=== PATIENT | female | born 1990 | race African-American/Black ===

== ENCOUNTER 2021-03-14 12:53 | Inpatient (IN) | payer MEDICARE, OTHER ==
[~2021-03-14] VITALS: Ht 157.5 cm; Wt 118.8 kg
[2021-03-14] MEDS ORDERED: METHYLPREDNISOLONE SOD SUCC 125 MG/2 ML VIAL IV ONE (14:45)
[2021-03-14 19:31] LABS: BASOPHILS % 0.5 % (0.0-2.0); EOSINOPHILS % 1.3 % (0.0-5.0); HEMATOCRIT. 36.9 % (36.0-48.0); HEMOGLOBIN. 12.1 g/dL (12.0-16.0); LYMPHOCYTES % 23.6 % (20.0-50.0); MEAN CORPUSCULAR HEMOGLOBIN 27.5 pg (28.0-32.0); MEAN CORPUSCULAR VOLUME 83.9 fL (81.0-99.0); MEAN PLATELET VOLUME 8.6 fl (7.4-10.4); MONOCYTES % 7.2 % (2.0-8.0); NEUTROPHILS % 67.4 % (40.0-76.0); PLATELET 355 x1000/uL (130-400); RED CELL DISTRIBUTION WIDTH 16.9 % (11.6-14.6)
[2021-03-14 19:36] LABS: CHLORIDE 107 mEq/L (98-107)
[2021-03-14 19:43] LABS: HCG SCREEN NEGATIVE
[2021-03-14] MEDS ORDERED: ACETAMINOPHEN 325MG TABLET PO PRN (22:15)
[2021-03-14] MEDS ORDERED: ONDANSETRON HCL 4MG/2ML INJ IV PRN (22:15)
[2021-03-14] MEDS ORDERED: LORAZEPAM 2MG/ML CPJ IV PRN (22:15)
[2021-03-14] MEDS ORDERED: CLONIDINE 0.1MG TABLET PO PRN (22:15)
[2021-03-14 22:49] LABS: CLARITY URINE CLOUDY (CLEAR); COLOR URINE YELLOW (YELLOW); KETONES URINE NEGATIVE (NEGATIVE); LEUKOCYTE ESTERASE URINE 1+ (NEGATIVE); NITRITE URINE NEGATIVE (NEGATIVE); OCCULT BLOOD URINE NEGATIVE (NEGATIVE); PROTEIN URINE NEGATIVE (NEGATIVE); SPECIFIC GRAVITY URINE 1.015 (1.005-1.030); UROBILINOGEN URINE 0.2 E.U./dL (0.2-1.0)
[2021-03-14 23:04] LABS: METHADONE URINE SCREEN NEGATIVE (NEGATIVE)
[2021-03-14 23:05] LABS: *AMPHETAMINES SCREEN URINE NEGATIVE (NEGATIVE); *BARBITURATES SCREEN URINE NEGATIVE (NEGATIVE); *BENZODIAZEPINES SCREEN URINE NEGATIVE (NEGATIVE); *COCAINE SCREEN URINE NEGATIVE (NEGATIVE); CANNABINOID URINE SCREEN NEGATIVE (NEGATIVE); OPIATES URINE SCREEN NEGATIVE (NEGATIVE); PHENCYCLIDINE URINE SCREEN NEGATIVE (NEGATIVE)
[2021-03-14] MEDS: THIAMINE HCL 100MG TABLET PO SCH (23:29)
[2021-03-15] MEDS: MORPHINE SULFATE 2 MG/ML CPJ (NOT FOR IM USE) IV PRN ×3 (02:15→22:25)
[2021-03-15] MEDS: ENOXAPARIN 30MG/0.3ML SYR SUBCUT SCH ×3 (02:16→22:17)
[2021-03-15] MEDS ORDERED: NALOXONE HCL 0.4MG/ML VIAL IV PRN (04:15)
[2021-03-15 06:46] LABS: BASOPHILS % 0.2 % (0.0-2.0); EOSINOPHILS % 0.1 % (0.0-5.0); HEMATOCRIT. 34.7 % (36.0-48.0); HEMOGLOBIN. 11.3 g/dL (12.0-16.0); LYMPHOCYTES % 9.6 % (20.0-50.0); MEAN CORPUSCULAR HEMOGLOBIN 27.7 pg (28.0-32.0); MEAN PLATELET VOLUME 8.5 fl (7.4-10.4); NEUTROPHILS % 89.1 % (40.0-76.0); PLATELET 375 x1000/uL (130-400); RED BLOOD CELL COUNT 4.08 mill/uL (4.2-5.4); RED CELL DISTRIBUTION WIDTH 16.5 % (11.6-14.6)
[2021-03-15 06:51] LABS: CHLORIDE 107 mEq/L (98-107)
[2021-03-15 06:58] LABS: PHOSPHORUS 2.3 mg/dL (2.5-4.9)
[2021-03-15] MEDS: THIAMINE HCL 100MG TABLET PO SCH (08:45)
[2021-03-15] MEDS ORDERED: ACETAMINOPHEN 325MG TABLET PO PRN (09:30)
[2021-03-15] MEDS ORDERED: DEXTROSE 50% WATER 50ML SYRINGE IV PRN ×2 (09:30)
[2021-03-15] MEDS ORDERED: DOCUSATE SODIUM 100MG CAPSULE PO PRN (09:30)
[2021-03-15] MEDS ORDERED: IPRATROPIUM/ALBUTEROL 0.5-3(2.5)MG/3ML NEB HHN PRN (09:30)
[2021-03-15] MEDS ORDERED: MAGNESIUM/ALUMINUM HYDROXIDE/SIMETHICONE 30ML UDC PO PRN (09:30)
[2021-03-15] MEDS: METHYLPREDNISOLONE SOD SUCC 125 MG/2 ML VIAL IV SCH ×2 (09:55→18:16)
[2021-03-15] MEDS ORDERED: METHYLPREDNISOLONE SOD SUCC 125 MG/2 ML VIAL IV SCH (10:00)
[2021-03-15 11:46] VITALS: BP 131/78
[2021-03-15 12:00] VITALS: BP 131/85
[2021-03-15] MEDS: BLOOD SUGAR DIAGNOSTIC STRIP TEST SCH ×3 (12:20→21:00)
[2021-03-15] MEDS: INSULIN LISPRO 100 UNITS/ML SUBCUT SCH ×3 (12:50→21:00)
[2021-03-15] MEDS: DEXT 5% IV SCH (12:57)
[2021-03-15] MEDS: METHYLPREDNISOLONE SOD IV SCH (12:57)
[2021-03-15] MEDS: WATER IV SCH (12:57)
[2021-03-15] MEDS: MULTIVITAMINS,THER W-MINERALS TABLET PO SCH (15:15)
[2021-03-15] MEDS ORDERED: TRAZ-251 MT (15:59)
[2021-03-15 16:00] VITALS: BP 112/65
[2021-03-15 21:13] VITALS: BP 162/109
[2021-03-16 00:28] VITALS: BP 113/76
[2021-03-16] MEDS: METHYLPREDNISOLONE SOD SUCC 125 MG/2 ML VIAL IV SCH ×5 (02:39→23:26)
[2021-03-16 04:00] VITALS: BP 132/78
[2021-03-16] MEDS: BLOOD SUGAR DIAGNOSTIC STRIP TEST SCH ×4 (07:20→20:45)
[2021-03-16 07:21] LABS: BASOPHILS % 0.1 % (0.0-2.0); HEMATOCRIT. 34.4 % (36.0-48.0); HEMOGLOBIN. 10.9 g/dL (12.0-16.0); LYMPHOCYTES % 8.8 % (20.0-50.0); MEAN CORPUSCULAR HEMOGLOBIN 27.3 pg (28.0-32.0); MEAN CORPUSCULAR VOLUME 85.9 fL (81.0-99.0); MEAN PLATELET VOLUME 8.8 fl (7.4-10.4); NEUTROPHILS % 86.1 % (40.0-76.0); PLATELET 405 x1000/uL (130-400); RED CELL DISTRIBUTION WIDTH 17.1 % (11.6-14.6)
[2021-03-16 08:00] VITALS: BP 134/85
[2021-03-16 08:18] LABS: CHLORIDE 110 mEq/L (98-107)
[2021-03-16 08:24] LABS: PHOSPHORUS 2.6 mg/dL (2.5-4.9)
[2021-03-16] MEDS: THIAMINE HCL 100MG TABLET PO SCH (09:22)
[2021-03-16] MEDS: MULTIVITAMINS,THER W-MINERALS TABLET PO SCH (09:22)
[2021-03-16] MEDS: ENOXAPARIN 30MG/0.3ML SYR SUBCUT SCH ×2 (09:23→21:57)
[2021-03-16 09:27] LABS: LDL CHOLESTEROL 173 mg/dL (5-100)
[2021-03-16] MEDS: MORPHINE SULFATE 2 MG/ML CPJ (NOT FOR IM USE) IV PRN ×2 (09:28→11:23)
[2021-03-16] MEDS: INSULIN LISPRO 100 UNITS/ML SUBCUT SCH ×5 (09:28→23:37)
[2021-03-16 09:29] LABS: HDL CHOLESTEROL 48 mg/dL (40-59)
[2021-03-16 09:30] LABS: T4 FREE 0.74 ng/dL (0.76-1.46)
[2021-03-16 12:00] VITALS: BP 136/87
[2021-03-16] MEDS: WATER IV SCH (12:40)
[2021-03-16] MEDS: METHYLPREDNISOLONE SOD IV SCH (12:40)
[2021-03-16] MEDS: HYDROCODONE/ACETAMINOPHEN 5/325MG TABLET PO PRN (12:40)
[2021-03-16] MEDS: DEXT 5% IV SCH (12:40)
[2021-03-16 20:00] VITALS: BP 120/75
[2021-03-17] VITALS: BP 134/96
[2021-03-17] MEDS: METHYLPREDNISOLONE SOD SUCC 125 MG/2 ML VIAL IV SCH (06:24)
[2021-03-17] MEDS: BLOOD SUGAR DIAGNOSTIC STRIP TEST SCH ×4 (06:32→20:17)
[2021-03-17] MEDS: INSULIN LISPRO 100 UNITS/ML SUBCUT SCH ×4 (07:14→20:20)
[2021-03-17 08:12] LABS: CHLORIDE 111 mEq/L (98-107)
[2021-03-17 08:15] LABS: HEMATOCRIT. 30.5 % (36.0-48.0); HEMOGLOBIN. 10.2 g/dL (12.0-16.0); MEAN CORPUSCULAR HEMOGLOBIN 28.4 pg (28.0-32.0); MEAN CORPUSCULAR VOLUME 84.7 fL (81.0-99.0); MEAN PLATELET VOLUME 8.9 fl (7.4-10.4); PLATELET 380 x1000/uL (130-400)
[2021-03-17] MEDS: POLYETHYLENE GLYCOL 3350 (17GM) 1 DOSE PACK PO SCH (09:14)
[2021-03-17] MEDS: MULTIVITAMINS,THER W-MINERALS TABLET PO SCH (09:14)
[2021-03-17] MEDS: THIAMINE HCL 100MG TABLET PO SCH (09:14)
[2021-03-17] MEDS: ENOXAPARIN 30MG/0.3ML SYR SUBCUT SCH ×2 (09:15→20:18)
[2021-03-17] MEDS: WATER IV SCH (11:54)
[2021-03-17] MEDS: METHYLPREDNISOLONE SOD IV SCH (11:54)
[2021-03-17] MEDS: DEXT 5% IV SCH (11:54)
[2021-03-17] MEDS: FAMOTIDINE 20MG TABLET PO SCH ×2 (11:55→20:19)
[2021-03-17 12:00] VITALS: BP 129/81
[2021-03-17] MEDS: HYDROCODONE/ACETAMINOPHEN 5/325MG TABLET PO PRN ×3 (12:09→20:46)
[2021-03-17 14:21] LABS: PLATELET ESTIMATE NORMAL
[2021-03-17 16:00] VITALS: BP 124/70
[2021-03-17 20:00] VITALS: BP 132/56
[2021-03-18] VITALS: BP 137/80
[2021-03-18 04:00] VITALS: BP 130/76
[2021-03-18] MEDS: HYDROCODONE/ACETAMINOPHEN 5/325MG TABLET PO PRN (04:11)
[2021-03-18] MEDS: BLOOD SUGAR DIAGNOSTIC STRIP TEST SCH ×3 (07:15→17:20)
[2021-03-18] MEDS: INSULIN LISPRO 100 UNITS/ML SUBCUT SCH ×3 (07:15→17:50)
[2021-03-18 08:00] VITALS: BP 128/68
[2021-03-18] MEDS: FAMOTIDINE 20MG TABLET PO SCH (09:00)
[2021-03-18] MEDS: MULTIVITAMINS,THER W-MINERALS TABLET PO SCH (09:19)
[2021-03-18] MEDS: POLYETHYLENE GLYCOL 3350 (17GM) 1 DOSE PACK PO SCH (09:19)
[2021-03-18] MEDS: THIAMINE HCL 100MG TABLET PO SCH (09:19)
[2021-03-18] MEDS: ENOXAPARIN 30MG/0.3ML SYR SUBCUT SCH (09:20)
[2021-03-18 12:00] VITALS: BP 130/90
[2021-03-18] MEDS: WATER IV SCH (12:35)
[2021-03-18] MEDS: DEXT 5% IV SCH (12:35)
[2021-03-18] MEDS: METHYLPREDNISOLONE SOD IV SCH (12:35)
== END 2021-03-18 20:25 | disposition left against medical advice (07) | DRG 60 ==
LOC: ER 12:53 → MICUSO 20:02 → SUPCPDRO 22:02 → 7WST 03-15 04:01 → MICUSO 03-15 07:24 → 6EST 03-15 09:39
PROVIDERS: ADMIT Internal Medicine Nephrology; ATTEND Internal Medicine Nephrology
DX: G35 Multiple sclerosis (principal); D64.9 Anemia, unspecified; D72.829 Elevated white blood cell count, unspecified; G89.29 Other chronic pain; E78.00 Pure hypercholesterolemia, unspecified; R26.9 Unspecified abnormalities of gait and mobility; Z20.822 Contact with and (suspected) exposure to COVID-19; Z53.29 Procedure and treatment not carried out because of patient's decision for other reasons; R13.10 Dysphagia, unspecified; E11.65 Type 2 diabetes mellitus with hyperglycemia; R32 Unspecified urinary incontinence; R20.2 Paresthesia of skin; R20.0 Anesthesia of skin; T38.0X5A Adverse effect of glucocorticoids and synthetic analogues, initial encounter; Y92.89 Other specified places as the place of occurrence of the external cause; Z91.14 Patient's other noncompliance with medication regimen; Z91.19 Patient's noncompliance with other medical treatment and regimen
CPT/HCPCS: 36415; 80048; 80053; 80061; 80076; 80305; 81003; 82962; 83036; 83735; 84100; 84439; 84443; 84703; 85025; 87426; 92610; 93005; 93970; 97162; 99285; J1650; J1815; J2060; J2270; J2930; J7060

== ENCOUNTER 2021-03-21 11:32 | Inpatient (IN) | payer MEDICARE, OTHER ==
[~2021-03-21] VITALS: Ht 157.5 cm; Wt 117.1 kg
[2021-03-21] MEDS: METHYLPREDNISOLONE SOD SUCC 125 MG/2 ML VIAL IV SCH
[~2021-03-21 11:32] MED LIST: TRAZ-251 MT
[2021-03-21] MEDS ORDERED: SODIUM CHLORIDE 0.9% 1,000 ML IV ONE (12:15)
[2021-03-21 12:52] LABS: BASOPHILS % 0.2 % (0.0-2.0); EOSINOPHILS % 1.2 % (0.0-5.0); HEMATOCRIT. 33.7 % (36.0-48.0); LYMPHOCYTES % 18.9 % (20.0-50.0); MEAN CORPUSCULAR VOLUME 85.4 fL (81.0-99.0); MEAN PLATELET VOLUME 8.3 fl (7.4-10.4); MONOCYTES % 7.5 % (2.0-8.0); NEUTROPHILS % 72.2 % (40.0-76.0); PLATELET 302 x1000/uL (130-400); RED BLOOD CELL COUNT 3.94 mill/uL (4.2-5.4); RED CELL DISTRIBUTION WIDTH 17.2 % (11.6-14.6)
[2021-03-21 13:02] LABS: CHLORIDE 111 mEq/L (98-107)
[2021-03-21 13:06] LABS: ETHANOL BLOOD < 10 mg/dL
[2021-03-21 13:10] LABS: CREATINE KINASE 32 IU/L (26-192)
[2021-03-21] MEDS ORDERED: CEFTRIAXONE 1 G PREMIX 50 ML IV ONE (14:30)
[2021-03-21] MEDS ORDERED: AZITHROMYCIN 500 MG TABLET PO ONE (14:30)
[2021-03-21 20:40] LABS: CLARITY URINE CLOUDY (CLEAR); COLOR URINE YELLOW (YELLOW); KETONES URINE NEGATIVE (NEGATIVE); LEUKOCYTE ESTERASE URINE 1+ (NEGATIVE); NITRITE URINE NEGATIVE (NEGATIVE); OCCULT BLOOD URINE 2+ (NEGATIVE); PROTEIN URINE NEGATIVE (NEGATIVE); SPECIFIC GRAVITY URINE 1.016 (1.005-1.030)
[2021-03-21] MEDS ORDERED: HYDROCODONE/ACETAMINOPHEN 5/325MG TABLET PO ONE (21:15)
[2021-03-21 21:16] LABS: *AMPHETAMINES SCREEN URINE NEGATIVE (NEGATIVE); *BARBITURATES SCREEN URINE NEGATIVE (NEGATIVE); *BENZODIAZEPINES SCREEN URINE NEGATIVE (NEGATIVE); *COCAINE SCREEN URINE NEGATIVE (NEGATIVE); METHADONE URINE SCREEN NEGATIVE (NEGATIVE)
[2021-03-21 21:17] LABS: CANNABINOID URINE SCREEN NEGATIVE (NEGATIVE); OPIATES URINE SCREEN NEGATIVE (NEGATIVE); PHENCYCLIDINE URINE SCREEN NEGATIVE (NEGATIVE)
[2021-03-21] MEDS ORDERED: MAGNESIUM/ALUMINUM HYDROXIDE/SIMETHICONE 30ML UDC PO PRN (23:00)
[2021-03-21] MEDS ORDERED: ACETAMINOPHEN 325MG TABLET PO PRN ×2 (23:00)
[2021-03-21] MEDS ORDERED: ONDANSETRON HCL 4MG/2ML INJ IV PRN (23:00)
[2021-03-21] MEDS ORDERED: ZOLPIDEM TARTRATE 5MG TABLET PO PRN (23:00)
[2021-03-21] MEDS ORDERED: DIPHENHYDRAMINE 50MG/ML VIAL IV PRN (23:00)
[2021-03-21] MEDS ORDERED: NALOXONE HCL 0.4MG/ML VIAL IV PRN (23:45)
[2021-03-22] VITALS (7 sets, daily range): BP systolic 97–131; BP diastolic 58–90
[2021-03-22] MEDS: METHYLPREDNISOLONE SOD SUCC 125 MG/2 ML VIAL IV SCH ×3 (05:40→18:35)
[2021-03-22] MEDS: SODIUM CHLORIDE 0.9% INJ 3ML FLUSH IVF SCH ×2 (05:40→14:00)
[2021-03-22] MEDS: HYDROCODONE/ACETAMINOPHEN 5/325MG TABLET PO PRN ×3 (06:01→18:35)
[2021-03-22] MEDS ORDERED: FAMOTIDINE 20MG TABLET PO SCH (09:00)
[2021-03-22] MEDS ORDERED: MULTIVITAMINS,THER W-MINERALS TABLET PO SCH (09:00)
[2021-03-22] MEDS ORDERED: POLYETHYLENE GLYCOL 3350 (17GM) 1 DOSE PACK PO SCH (09:00)
[2021-03-22] MEDS ORDERED: THIAMINE HCL 100MG TABLET PO SCH (09:00)
== END 2021-03-22 21:50 | disposition home or self-care (01) | DRG 58 ==
LOC: ER 11:32 → MICUSO 17:56 → 6WST 22:47
PROVIDERS: ADMIT Internal Medicine; ATTEND Internal Medicine
DX: G35 Multiple sclerosis (principal); J18.9 Pneumonia, unspecified organism; Z68.42 Body mass index [BMI] 45.0-49.9, adult; Z20.822 Contact with and (suspected) exposure to COVID-19; F41.1 Generalized anxiety disorder; Z91.14 Patient's other noncompliance with medication regimen; Z91.19 Patient's noncompliance with other medical treatment and regimen; D63.8 Anemia in other chronic diseases classified elsewhere; T38.0X5A Adverse effect of glucocorticoids and synthetic analogues, initial encounter; D72.829 Elevated white blood cell count, unspecified; E78.00 Pure hypercholesterolemia, unspecified; R73.9 Hyperglycemia, unspecified; E66.01 Morbid (severe) obesity due to excess calories; I95.9 Hypotension, unspecified
CPT/HCPCS: 36415; 71045; 80053; 80305; 80320; 81003; 82140; 82550; 83605; 83880; 84443; 84484; 85025; 86850; 86900; 87426; 93005; 99285; J0696; J2930; J7030; G0480

== ENCOUNTER 2022-08-28 14:28 | Emergency (ER) | payer MEDICARE, OTHER ==
[~2022-08-28] VITALS: Ht 157.5 cm; Wt 74.0 kg
[2022-08-28 14:38] VITALS: BP 136/70
[2022-08-28] MEDS ORDERED: ACETAMINOPHEN 325MG TABLET PO STA (18:57)
[2022-08-28 19:45] LABS: CLARITY URINE SL HAZY (CLEAR); COLOR URINE YELLOW (YELLOW); KETONES URINE 1+ (NEGATIVE); LEUKOCYTE ESTERASE URINE NEGATIVE (NEGATIVE); NITRITE URINE NEGATIVE (NEGATIVE); OCCULT BLOOD URINE NEGATIVE (NEGATIVE); PROTEIN URINE TRACE (NEGATIVE); SPECIFIC GRAVITY URINE 1.025 (1.005-1.030); UROBILINOGEN URINE 0.2 E.U./dL (0.2-1.0)
[2022-08-28] MEDS ORDERED: DIAZEPAM 5 MG TABLET PO ONE (20:30)
[2022-08-28 20:34] LABS: BASOPHILS % 0.6 % (0.0-2.0); EOSINOPHILS % 1.2 % (0.0-5.0); HEMATOCRIT. 29.4 % (36.0-48.0); HEMOGLOBIN. 9.3 g/dL (12.0-16.0); LYMPHOCYTES % 26.5 % (20.0-50.0); MEAN CORPUSCULAR HEMOGLOBIN 23.7 pg (28.0-32.0); MEAN CORPUSCULAR VOLUME 75.2 fL (81.0-99.0); MEAN PLATELET VOLUME 8.7 fl (7.4-10.4); MONOCYTES % 7.4 % (2.0-8.0); NEUTROPHILS % 64.3 % (40.0-76.0); PLATELET 311 x1000/uL (130-400); RED BLOOD CELL COUNT 3.91 mill/uL (4.2-5.4); RED CELL DISTRIBUTION WIDTH 19.7 % (11.6-14.6)
[2022-08-28 20:45] LABS: CHLORIDE 114 mEq/L (98-107)
[2022-08-29] MEDS ORDERED: IBUP-2029 MT (01:08)
== END 2022-08-28 23:10 | disposition home or self-care (01) ==
LOC: ER 14:28
DX: M54.59 Other low back pain (principal); R53.1 Weakness; Z20.822 Contact with and (suspected) exposure to COVID-19; R51.9 Headache, unspecified; Z59.00 Homelessness unspecified
CPT/HCPCS: 36415; 72148; 80053; 81003; 81025; 85025; 87426; 93005; 99285; C9803

== ENCOUNTER 2022-08-29 00:29 | Emergency (ER) | payer MEDICARE, OTHER ==
[~2022-08-29] VITALS: Ht 157.5 cm; Wt 74.0 kg
[2022-08-29] MEDS ORDERED: IBUP-2029 MT (01:08)
[2022-08-29] MEDS ORDERED: IBUPROFEN 600MG TABLET PO ONE (01:15)
[2022-08-29 01:20] VITALS: BP 130/82
== END 2022-08-29 01:23 | disposition home or self-care (01) ==
LOC: ER 00:29
DX: M54.2 Cervicalgia (principal); Z59.00 Homelessness unspecified
CPT/HCPCS: 99282

== ENCOUNTER 2024-03-19 13:00 | Emergency (ER) | payer MEDICARE, OTHER ==
[~2024-03-19] VITALS: Ht 167.6 cm; Wt 86.0 kg
[~2024-03-19 13:00] MED LIST changes: +IBUP-2029 MT
[2024-03-19 13:04] VITALS: O2SAT 98
[2024-03-19 18:55] LABS: CHLORIDE 111 mEq/L (98-107); POTASSIUM 3.7 mEq/L (3.5-5.1); SODIUM 141 mEq/L (136-145)
[2024-03-19 18:56] LABS: CALCIUM 9.6 mg/dL (8.7-10.4); CARBON DIOXIDE 24 mEq/L (21-32)
[2024-03-19 19:01] LABS: BASOPHILS % 0.6 % (0.0-2.0); CREATININE 0.7 mg/dL (0.6-1.0); EOSINOPHILS % 1.6 % (0.0-5.0); GLUCOSE 106 mg/dL (70-105); HEMATOCRIT. 32.6 % (36.0-48.0); HEMOGLOBIN. 10.3 g/dL (12.0-16.0); LYMPHOCYTES % 20.9 % (20.0-50.0); MEAN CORPUSCULAR HGB CONC 31.5 g/dL (31.0-37.0); MEAN CORPUSCULAR VOLUME 85.6 fL (81.0-99.0); MONOCYTES % 8.9 % (2.0-8.0); RED BLOOD CELL COUNT 3.81 mill/uL (4.2-5.4); RED CELL DISTRIBUTION WIDTH 17.7 % (11.6-14.6); UREA NITROGEN BLOOD 13 mg/dL (9-23); WHITE BLOOD COUNT 8.2 x1000/uL (4.5-11.0)
[2024-03-19 19:02] LABS: ETHANOL BLOOD < 10 mg/dL (<10)
[2024-03-19 19:03] LABS: ALANINE AMINOTRANSFERASE 9 IU/L (10-49); ALBUMIN 4.6 g/dL (3.2-4.8); ASPARTATE AMINOTRANSFERASE 12 IU/L (<34); BILIRUBIN TOTAL 0.2 mg/dL (0.1-1.0); CREATINE KINASE 51 IU/L (34-145); PROTEIN TOTAL 7.1 g/dL (6.0-8.3)
[2024-03-19 19:05] LABS: HCG SCREEN NEGATIVE
[2024-03-19 19:07] LABS: DIFFERENTIAL COMMENT 1
[2024-03-19 19:27] LABS: MEAN PLATELET VOLUME 9.3 fl (7.4-10.4); PLATELET 312 x1000/uL (130-400)
[2024-03-19 19:51] LABS: CLARITY URINE CLOUDY (CLEAR); COLOR URINE YELLOW (YELLOW); GLUCOSE URINE NEGATIVE (NEGATIVE); KETONES URINE TRACE (NEGATIVE); LEUKOCYTE ESTERASE URINE NEGATIVE (NEGATIVE); NITRITE URINE NEGATIVE (NEGATIVE); OCCULT BLOOD URINE NEGATIVE (NEGATIVE); PH URINE 5.5 (4.5-8.0); PROTEIN URINE NEGATIVE (NEGATIVE); SPECIFIC GRAVITY URINE 1.035 (1.005-1.030)
[2024-03-19 19:59] LABS: *AMPHETAMINES SCREEN URINE NEGATIVE (NEGATIVE); *BARBITURATES SCREEN URINE NEGATIVE (NEGATIVE); *BENZODIAZEPINES SCREEN URINE NEGATIVE (NEGATIVE); *COCAINE SCREEN URINE NEGATIVE (NEGATIVE); CANNABINOID URINE SCREEN NEGATIVE (NEGATIVE); METHADONE URINE SCREEN NEGATIVE (NEGATIVE); OPIATES URINE SCREEN PRESUMPTIVE POSITIVE (NEGATIVE); PHENCYCLIDINE URINE SCREEN NEGATIVE (NEGATIVE)
[2024-03-19] MEDS: KETOROLAC 30MG/ML VIAL IM ONE (20:15)
[2024-03-19] MEDS: HYDROCODONE/ACETAMINOPHEN 5/325MG TABLET PO ONE (20:15)
[2024-03-19 20:47] LABS: BACTERIA URINE 2+; RBC URINE 0-2 /hpf (0-2); SQUAMOUS EPITHELIAL CELL URINE 3+ /lpf (RARE/1+); WBC URINE 0-2 /hpf (0-2)
[2024-03-19 21:50] VITALS: BP 134/76; PULSE 100; RESP 16; TEMP 98.1
[2024-03-20] MEDS ORDERED: IBUP-2029 MT (18:26)
[2024-03-20] MEDS ORDERED: LIDO700A30 TP (18:26)
== END 2024-03-19 21:41 | disposition home or self-care (01) ==
LOC: ER 13:00
DX: G89.29 Other chronic pain (principal); G35 Multiple sclerosis; M79.10 Myalgia, unspecified site
CPT/HCPCS: 80053; 80305; 81003; 81025; 80320; 82550; 84703; 83690; 85025; 36415; 96372; 99283; J1885; G0480

== ENCOUNTER 2024-03-20 15:42 | Emergency (ER) | payer MEDICARE, OTHER ==
[~2024-03-20] VITALS: Ht 167.6 cm; Wt 78.0 kg
[2024-03-20 15:48] VITALS: BP 106/60; PULSE 77; RESP 16; TEMP 97.8; O2SAT 97
[2024-03-20] MEDS ORDERED: LIDO700A30 TP (18:26)
[2024-03-20] MEDS ORDERED: IBUP-2029 MT (18:26)
[2024-03-20] MEDS: IBUPROFEN 400MG TABLET PO ONE (18:51)
== END 2024-03-20 18:54 | disposition home or self-care (01) ==
LOC: ER 15:42
DX: R51.9 Headache, unspecified (principal); M54.30 Sciatica, unspecified side; Z79.899 Other long term (current) drug therapy
CPT/HCPCS: 99283

== ENCOUNTER 2024-03-22 17:10 | Emergency (ER) | payer MEDICARE, OTHER ==
[~2024-03-22] VITALS: Ht 165.1 cm; Wt 82.0 kg
[~2024-03-22 17:10] MED LIST changes: +LIDO700A30 TP
[2024-03-22 17:14] VITALS: BP 100/62; PULSE 57; RESP 14; TEMP 98.1; O2SAT 99
[2024-03-22] MEDS ORDERED: IBUPROFEN 600MG TABLET PO ONE (17:30)
[2024-03-22] MEDS ORDERED: IBUP-2029 MT (17:54)
[2024-03-22] MEDS ORDERED: LIDO700A15 TP (19:45)
== END 2024-03-22 18:15 | disposition home or self-care (01) ==
LOC: ER 17:10
DX: G89.29 Other chronic pain (principal); M79.10 Myalgia, unspecified site; Z79.899 Other long term (current) drug therapy
CPT/HCPCS: 99283

== ENCOUNTER 2024-03-22 19:16 | Emergency (ER) | payer MEDICARE, OTHER ==
[~2024-03-22] VITALS: Ht 167.6 cm; Wt 75.0 kg
[2024-03-22 19:19] VITALS: O2SAT 100
[2024-03-22] MEDS ORDERED: ACETAMINOPHEN 325MG TABLET PO ONE (19:30)
[2024-03-22] MEDS ORDERED: LIDO700A15 TP (19:45)
[2024-03-22 20:16] VITALS: TEMP 36.89184; O2SAT 99
[2024-03-22 20:18] VITALS: BP 104/71; PULSE 76; RESP 16
[2024-03-22] MEDS: IBUPROFEN 400MG TABLET PO ONE (20:18)
[2024-03-23] MEDS ORDERED: CIPROFLOXACIN 0.3% OPHTH SOLN 2.5ML LEFT EAR ONE (00:15)
== END 2024-03-22 20:24 | disposition home or self-care (01) ==
LOC: ER 19:16
DX: M79.10 Myalgia, unspecified site (principal); M54.2 Cervicalgia; Z79.899 Other long term (current) drug therapy
CPT/HCPCS: 99283